=== PATIENT | female | born 1945 | race Caucasian/White ===

== ENCOUNTER → 2020-06-29 | Outpatient (CLI) | payer MEDICARE ==
[~2020-06-29] MED LIST: ALBU3IS; ASPI325; ATOR10; BACL10; BUDE10.22; COLE625 PO; Celexa10 MG; FLUT220OIA; GABA600; LOPE2C; LORA10; Omeprazole20 M1 PO; PROP60
== END ==
LOC: PLD 07:30 → LAB SHORT 07:30
DX: D48.5 Neoplasm of uncertain behavior of skin (principal); L57.0 Actinic keratosis
CPT/HCPCS: 88342

== ENCOUNTER 2021-08-17 12:53 | Emergency (ER) | payer MEDICARE ==
[~2021-08-17] VITALS: Ht 162.6 cm; Wt 59.0 kg
== END 2021-08-17 15:54 | disposition home or self-care (01) ==
LOC: ER 12:53
DX: S00.03XA Contusion of scalp, initial encounter (principal); S59.902A Unspecified injury of left elbow, initial encounter; W19.XXXA Unspecified fall, initial encounter
CPT/HCPCS: 70450; 99283-25

== ENCOUNTER 2022-09-20 10:25 | Inpatient (IN) | payer MEDICARE ==
[~2022-09-20] VITALS: Ht 152.4 cm; Wt 38.1 kg
[~2022-09-20 10:25] MED LIST changes: -ATOR10; +ATOR40TA PO; +OMEP20ER PO; -Omeprazole20 M1 PO
[2022-09-20 11:29] LABS: Hematocrit 34.6 % (33.0-51.0); Hemoglobin 11.3 g/dL (11.5-16.0); Mean Corpuscular HGB 30.2 pg (26.0-34.0); Mean Corpuscular HGB Conc 32.7 g/dL (31.5-36.5); Mean Corpuscular Volume 93 fL (80-100); Mean Platelet Volume 9.8 fL (9.1-12.4); Platelet Count 535 K/mm3 (150-400); RDW Coefficient Variation 14.9 % (11.7-14.2); RDW Standard Deviation 50.4 fL (35.1-46.3); Red Blood Cell Count 3.74 M/mm3 (3.80-5.20); White Blood Cell Count 34.96 K/mm3 (4.00-11.30)
[2022-09-20 11:47] LABS: Albumin/Globulin Ratio 0.5 (0.8-1.8); Bilirubin, Total 0.6 mg/dL (0.1-1.0); Calcium, Blood 8.2 mg/dL (8.5-10.1); Creatinine, Blood 0.72 mg/dL (0.40-1.00); Globulin, Blood 3.8 g/dL (2.2-4.0); Potassium, Blood 4.8 mmol/L (3.5-5.5); Total Protein, Blood 5.8 g/dL (6.4-8.2)
[2022-09-20 11:58] LABS: Source, Urine Clean Catch
[2022-09-20 12:07] LABS: Appearance, Urine Clear (Clear); Blood, Urine Neg (Neg); Color, Urine Amber (P-Yellow); Glucose Qualitative, Urine Neg (Neg); Ketones, Urine 1+ (Neg); Leukocyte Esterase, Urine 1+ (Neg); Nitrite, Urine Neg (Neg); Protein, Urine 2+ (Neg); Urobilinogen, Urine 1+ (Normal)
[2022-09-20 12:22] LABS: BAND PERCENT MAN 22 % (0-8); BASOPHILS PERCENT MAN 0 % (0-2); EOSINOPHILS PERCENT MAN 0 % (0-6); LYMPHOCYTES ABSOLUTE MAN 1.74 K/mm3 (0.84-5.20); LYMPHOCYTES PERCENT MAN 5 % (21-46); METAMYELOCYTE ABSOLUTE MAN 0.34 K/mm3 (0.00-0.00); METAMYELOCYTE PERCENT MAN 1 % (0-0); MONOCYTES ABSOLUTE MAN 2.79 K/mm3 (0.16-1.47); MONOCYTES PERCENT MAN 8 % (4-13); NEUTROPHILS ABSOLUTE MAN 30.06 K/mm3 (1.96-9.15); SEG NEUTROPHILS PERCENT MAN 64 % (41-73); TOTAL CELLS COUNTED 100
[2022-09-20 12:30] LABS: Influenza A, PCR NEGATIVE (NEGATIVE); Influenza B, PCR NEGATIVE (NEGATIVE); Resp Syncytial Virus, PCR NEGATIVE (NEGATIVE); SARS-Cov-2 (COVID-19) PCR, MMC NEGATIVE (NEGATIVE)
[2022-09-20 12:36] LABS: Bilirubin, Urine 1+ (Neg)
[2022-09-20 12:38] LABS: Red Blood Cells, Urine 0-2 /hpf (0-2)
[2022-09-20 12:40] LABS: Bacteria Few /hpf; Squamous Epithelial Cells Rare /hpf (Few)
[2022-09-20 19:20] LABS: Campylobacter Sp Not Detected (NOT DETECT); Plesiomonas Shigelloides Not Detected (NOT DETECT); Salmonella Sp Not Detected (NOT DETECT); Vibrio Cholerae Not Detected (NOT DETECT); Vibrio Sp Not Detected (NOT DETECT); Yersinia Enterocolitica Not Detected (NOT DETECT)
[2022-09-20 19:21] LABS: Adenovirus F 40/41 Not Detected (NOT DETECT); Astrovirus Not Detected (NOT DETECT); Cryptosporidium Not Detected (NOT DETECT); Cyclospora Cayetanensis Not Detected (NOT DETECT); E. Coli O157 Not Detected (NOT DETECT); Entamoeba Histolytica Not Detected (NOT DETECT); Enteroaggregative E. coli-EAEC Not Detected (NOT DETECT); Enteropathogenic E. coli-EPEC Detected (NOT DETECT); Enterotoxigenic E. coli-ETEC Not Detected (NOT DETECT); Giardia Lamblia Not Detected (NOT DETECT); Norovirus GI/GII Detected (NOT DETECT); Rotavirus A Not Detected (NOT DETECT); Sapovirus Not Detected (NOT DETECT); Shiga Toxin-prod E. coli-STEC Not Detected (NOT DETECT); Shigella/Enteroin E. coli-EIEC Not Detected (NOT DETECT)
[2022-09-20] MEDS ORDERED: DULO60 PO (20:55)
[2022-09-20] MEDS ORDERED: Namenda5 MG PO (20:55)
[2022-09-20] MEDS ORDERED: METPRE4DP PO (20:56)
--- NOTE | 2022-09-21 03:15 | NUR ---
SHIFT SUMMARY; PATIENT ARRIVED TO MED FLOOR SHORTLY AFTER SHIFT CHANGE. SHE IS IN CONTACT PRECAUTIONS FOR POS NORO VIRUS AND FOR POS C-DIFF. HER STOOLS ARE VERY LOOSE AND SHE HAS MINIMAL CONTROL. PATIENT IS CHANGED OFTEN DURING NOC SHIFT AND NOTED TO HAVE INCREASED REDNESS ON HER RECTAL AREA. CREME IS APPLIED FOR PAITENT COMFORT. SHE HAS LR AT 100ML/HR INFUSING AND SHE RESTED COMFORTTABLY THROUGHOUT THE NIGHT. ROUSEING EASILY TO VERBAL STIMULIU. HER VITAL SIGNS ARE STABLE WITH EXCEPTION OF A RAPID PULSE IN THE 100 RANGE. PER REPORT PATIENT HAS PANCREATIC CANCER AND IT HAS METASTACIZED TO THE BRAIN.
[2022-09-21] MEDS ORDERED: POTA10T PO (04:56)
[2022-09-21] MEDS ORDERED: TRAM50 PO (04:57)
[2022-09-21] MEDS ORDERED: OXYC5 PO (05:00)
[2022-09-21] MEDS ORDERED: CREON DR 6,0001 EACH PO ×2 (05:01→05:02)
[2022-09-21] MEDS ORDERED: AMLODIPINE BESYL5 MG PO (05:02)
[2022-09-21] MEDS ORDERED: LEVFLO500 PO (05:03)
[2022-09-21 05:34] LABS: BASOPHILS ABSOLUTE AUTO 0.12 K/mm3 (0.00-0.23); BASOPHILS PERCENT AUTO 1 % (0-2); EOSINOPHILS ABSOLUTE AUTO 0.11 K/mm3 (0.00-0.68); EOSINOPHILS PERCENT AUTO 1 % (0-6); Hemoglobin 10.7 g/dL (11.5-16.0); IMMATURE GRAN ABSOLUTE AUTO 0.23 K/mm3 (0.00-0.10); IMMATURE GRAN PERCENT AUTO 1 % (0-1); LYMPHOCYTES PERCENT AUTO 14 % (21-46); MONOCYTES ABSOLUTE AUTO 1.76 K/mm3 (0.16-1.47); MONOCYTES PERCENT AUTO 8 % (4-13); Mean Corpuscular HGB 30.1 pg (26.0-34.0); Mean Corpuscular HGB Conc 32.4 g/dL (31.5-36.5); Mean Corpuscular Volume 93 fL (80-100); Mean Platelet Volume 9.8 fL (9.1-12.4); NEUTROPHILS ABSOLUTE AUTO 16.14 K/mm3 (1.96-9.15); NEUTROPHILS PERCENT AUTO 76 % (41-73); Platelet Count 532 K/mm3 (150-400); Red Blood Cell Count 3.56 M/mm3 (3.80-5.20); White Blood Cell Count 21.36 K/mm3 (4.00-11.30)
[2022-09-21 06:27] LABS: Bun/Creatinine Ratio 31.1 (12.0-20.0); Calcium, Blood 7.7 mg/dL (8.5-10.1); Creatinine, Blood 0.58 mg/dL (0.40-1.00)
--- NOTE | 2022-09-21 16:42 | NUR ---
SHIFT SUMMARY PT A&OX4 AND COOPERATIVE OF CARE. PT HAD ONE EPISODE OF INCONTINENCE IN THE AM BUT HAS BEEN ABLE TO USE BEDSIDE CAMMODE FOR REST OF DAY. PT WAS UP TO CHAIR DURING LUNCH AND TOLERATED WELL. AT BEDSIDE FOR SHORT TIME DURING AFTERNOON. PT C/O HEADACHE DURING AFTERNOON, MEDICATED PER EMAR. PT APPEARS TO BE RESTING WITH NO SIGNS OF DISCOMFORT. BED IN LOWEST POSITION AND CALL LIGHT IN REACH.
--- NOTE | 2022-09-22 03:03 | NUR ---
SHIFT SUMMARY; PATIENT HAS PLEASANT AFFECT AND IS COOPERATIVE WITH CARE. PATIENT STILL COMPLAINS OF DIARRHEA AND HAS DIFFICULT TIME CONTROLLING HER BOWELS. SHE IS NOTED TO SOIL MULTIPLE ATTENDS. SHE IS AO X 4 DURING NOC SHIFT AND HER VITAL SIGNS ARE STABLE. SHE USES CALL LIGHT APPROPRIATELY AND IS ABLE TO MAKE HER NEEDS KNOWN. SHE REMAINS ON BEDREST AND IS MEDICATED X 1 FOR ABDOMINAL PAIN WITH GOOD RESULTS. WILL REMAIN AVAILABLE FOR THIS PATIENT FOR ANY WANTS OR NEEDS THAT COME UP FOR THIS PATIENT UNTIL REPORT AND HAND OFF TO DAY SHIFT RN.
[2022-09-22 06:02] LABS: BASOPHILS ABSOLUTE AUTO 0.04 K/mm3 (0.00-0.23); BASOPHILS PERCENT AUTO 1 % (0-2); EOSINOPHILS ABSOLUTE AUTO 0.18 K/mm3 (0.00-0.68); EOSINOPHILS PERCENT AUTO 2 % (0-6); Hematocrit 32.2 % (33.0-51.0); Hemoglobin 10.5 g/dL (11.5-16.0); IMMATURE GRAN PERCENT AUTO 1 % (0-1); LYMPHOCYTES ABSOLUTE AUTO 2.82 K/mm3 (0.84-5.20); LYMPHOCYTES PERCENT AUTO 33 % (21-46); MONOCYTES ABSOLUTE AUTO 0.81 K/mm3 (0.16-1.47); MONOCYTES PERCENT AUTO 9 % (4-13); Mean Corpuscular HGB 30.3 pg (26.0-34.0); Mean Corpuscular HGB Conc 32.6 g/dL (31.5-36.5); Mean Corpuscular Volume 93 fL (80-100); Mean Platelet Volume 9.4 fL (9.1-12.4); NEUTROPHILS ABSOLUTE AUTO 4.69 K/mm3 (1.96-9.15); NEUTROPHILS PERCENT AUTO 54 % (41-73); Platelet Count 501 K/mm3 (150-400); RDW Coefficient Variation 14.9 % (11.7-14.2); RDW Standard Deviation 50.2 fL (35.1-46.3); Red Blood Cell Count 3.47 M/mm3 (3.80-5.20); White Blood Cell Count 8.64 K/mm3 (4.00-11.30)
[2022-09-22 06:34] LABS: Calcium, Blood 7.2 mg/dL (8.5-10.1); Creatinine, Blood 0.53 mg/dL (0.40-1.00); Magnesium, Blood 2.5 mg/dL (1.6-2.4); Potassium, Blood 3.8 mmol/L (3.5-5.5)
[2022-09-22] MEDS ORDERED: VISBIOME 112.51 EACH PO (13:48)
[2022-09-22] MEDS ORDERED: VANCOCIN HCL125 MG PO (13:48)
--- NOTE | 2022-09-22 16:19 | NUR ---
PT DISCHARGED HOME WITH . DISCHARGE INSTRUCTIONS AND EDUCATION MATERIAL EXPALINED TO PT. PT AND SPOUSE VERBALIZED NO NEW QUESTIONS OR CONCERNS. IV DC'D. PATRIZIA AND ALBA IN PLACE. BELONGINGS SENT HOME WITH PT. PT TAKEN BY WHEELCHAIR TO WAITING VEHICLE.
== END 2022-09-22 16:10 | disposition home health service (06) | DRG 872 ==
LOC: ER 10:25 → MEDS 18:55
PROVIDERS: Physician Assistant; Student in an Organized Health Care Education/Training Program; ADMIT Family Medicine
DX: A41.9 Sepsis, unspecified organism (principal); A04.72 Enterocolitis due to Clostridium difficile, not specified as recurrent; A04.4 Other intestinal Escherichia coli infections; A08.11 Acute gastroenteropathy due to Norwalk agent; C25.9 Malignant neoplasm of pancreas, unspecified; D84.9 Immunodeficiency, unspecified; E87.1 Hypo-osmolality and hyponatremia; E87.20 Acidosis, unspecified; R65.20 Severe sepsis without septic shock; E83.42 Hypomagnesemia; J44.9 Chronic obstructive pulmonary disease, unspecified; K21.9 Gastro-esophageal reflux disease without esophagitis; E86.0 Dehydration; D63.0 Anemia in neoplastic disease; D75.839 Thrombocytosis, unspecified; Z20.822 Contact with and (suspected) exposure to COVID-19; Z96.612 Presence of left artificial shoulder joint; Z88.2 Allergy status to sulfonamides; Z79.899 Other long term (current) drug therapy; Z79.02 Long term (current) use of antithrombotics/antiplatelets; Z92.21 Personal history of antineoplastic chemotherapy; Z79.51 Long term (current) use of inhaled steroids; Z79.52 Long term (current) use of systemic steroids; Z90.49 Acquired absence of other specified parts of digestive tract; Z98.890 Other specified postprocedural states; Z90.710 Acquired absence of both cervix and uterus; Z87.891 Personal history of nicotine dependence
CPT/HCPCS: 0241U; 36415; 71045; 74177; 80048; 80053; 81001; 83605; 83735; 85025; 87040; 87086; 87324; 87507; 93005; 93010; 96361; 96365-59; 96375; 97162; 97530; 99285-25; A9270; J0692; J0696; J1650; J3475; J7030; J7120; P9612; Q9967

== ENCOUNTER 2022-12-02 22:15 | Emergency (ER) | payer MEDICARE ==
[~2022-12-02] VITALS: Ht 162.6 cm; Wt 34.0 kg
[~2022-12-02 22:15] MED LIST changes: +AMLODIPINE BESYL5 MG PO; +CREON DR 6,0001 EACH PO; +DULO60 PO; +LEVFLO500 PO; +METPRE4DP PO; +Namenda5 MG PO; +OXYC5 PO; +POTA10T PO; +TRAM50 PO; +VANCOCIN HCL125 MG PO; +VISBIOME 112.51 EACH PO
[2022-12-03 01:12] LABS: BASOPHILS ABSOLUTE AUTO 0.02 K/mm3 (0.00-0.23); BASOPHILS PERCENT AUTO 0 % (0-2); EOSINOPHILS ABSOLUTE AUTO 0.04 K/mm3 (0.00-0.68); EOSINOPHILS PERCENT AUTO 0 % (0-6); Hemoglobin 12.7 g/dL (11.5-16.0); IMMATURE GRAN ABSOLUTE AUTO 0.03 K/mm3 (0.00-0.10); IMMATURE GRAN PERCENT AUTO 0 % (0-1); LYMPHOCYTES ABSOLUTE AUTO 1.89 K/mm3 (0.84-5.20); LYMPHOCYTES PERCENT AUTO 16 % (21-46); MONOCYTES ABSOLUTE AUTO 0.53 K/mm3 (0.16-1.47); MONOCYTES PERCENT AUTO 5 % (4-13); Mean Corpuscular HGB 29.3 pg (26.0-34.0); Mean Corpuscular HGB Conc 33.4 g/dL (31.5-36.5); Mean Corpuscular Volume 88 fL (80-100); Mean Platelet Volume 10.4 fL (9.1-12.4); NEUTROPHILS ABSOLUTE AUTO 9.09 K/mm3 (1.96-9.15); NEUTROPHILS PERCENT AUTO 78 % (41-73); Platelet Count 439 K/mm3 (150-400); RDW Coefficient Variation 16.3 % (11.7-14.2); RDW Standard Deviation 52.5 fL (35.1-46.3); Red Blood Cell Count 4.34 M/mm3 (3.80-5.20)
[2022-12-03 01:41] LABS: Magnesium, Blood 1.8 mg/dL (1.6-2.4)
[2022-12-03 01:46] LABS: Albumin/Globulin Ratio 0.9 (0.8-1.8); Bilirubin, Direct 0.1 mg/dL (0.0-0.3); Bilirubin, Indirect 0.3 mg/dL (0.1-0.7); Bilirubin, Total 0.4 mg/dL (0.1-1.0); Bun/Creatinine Ratio 27.6 (12.0-20.0); Creatinine, Blood 0.51 mg/dL (0.40-1.00); Globulin, Blood 3.5 g/dL (2.2-4.0); Total Protein, Blood 6.5 g/dL (6.4-8.2)
[2022-12-03 01:53] LABS: Potassium, Blood 2.1 mmol/L (3.5-5.5)
[2022-12-03 02:21] LABS: Source, Urine Straight Cath
[2022-12-03 02:35] LABS: Bilirubin, Urine Neg (Neg); Blood, Urine 1+ (Neg); Glucose Qualitative, Urine Neg (Neg); Ketones, Urine 1+ (Neg); Leukocyte Esterase, Urine 1+ (Neg); Nitrite, Urine Neg (Neg); Protein, Urine 2+ (Neg); Specific Gravity, Urine 1.025 (1.003-1.022); Urobilinogen, Urine NORM (Normal)
[2022-12-03 03:06] LABS: Appearance, Urine Hazy (Clear); Color, Urine Yellow (P-Yellow)
[2022-12-03 03:09] LABS: Bacteria Many /hpf; Granular Casts 0-2 /lpf (0); Hyaline Casts 0-2 /lpf (0-2); Red Blood Cells, Urine 0-2 /hpf (0-2); Squamous Epithelial Cells Few /hpf (Few)
[2022-12-03 11:06] LABS: Influenza A, PCR NEGATIVE (NEGATIVE); Influenza B, PCR NEGATIVE (NEGATIVE); Resp Syncytial Virus, PCR NEGATIVE (NEGATIVE); SARS-Cov-2 (COVID-19) PCR, MMC NEGATIVE (NEGATIVE)
--- NOTE | 2022-12-03 11:46 | NUR ---
Met with pt this am after speaking with pt's Massimo and ED social worker clinical/nurse wound care Indira. Pt was referred to [facility] by Dr. Taylor, Oncologist. Per Valorie,RN at [facility], Dr. Ochoa's office stated pt is "going quickly". Last night, pt's sent her to the ED via EMT after she fell several times. Per , pt weighs approx 58lbs and has continued to lose weight rapidly since diagnosis and treatment. is calling pt's daughter in [place] now to come to help with pt's care. She is being sent home now, and will be admitted to hospice services today. Pt is alert, pleasantly confused. She indicated she has not begun doing any sort of treatment for her pancreatic cancer yet, and stated the spots on her brain "simply dissapeared". She became upset at the use of the word "hospice" and reports she has no plan of going on hospice anytime soon, as "there is no need, I'm not sick". According to her , this is her usual attitude and thoughts, as she has extremely poor short term memory. I discussed this with admitting hospice nurse, as well as ED customs manager. Pt's is aware pt is returning home now; he is calling pt's daughter for help in caring for pt.
== END 2022-12-03 12:03 | disposition home or self-care (01) ==
LOC: ER 22:15
PROVIDERS: Emergency Medicine; Student in an Organized Health Care Education/Training Program
DX: E87.6 Hypokalemia (principal); C25.9 Malignant neoplasm of pancreas, unspecified; R64 Cachexia; R62.7 Adult failure to thrive; Z68.1 Body mass index [BMI] 19.9 or less, adult; Z88.2 Allergy status to sulfonamides; Z79.899 Other long term (current) drug therapy; K21.9 Gastro-esophageal reflux disease without esophagitis; Z87.891 Personal history of nicotine dependence
CPT/HCPCS: 0241U; 36415; 70450; 80048; 80076; 81001; 83690; 83735; 85025; 96361; 96365; 96366; 96368; 96375; 99285-25; A9270; J2765; J3475; J3480; J7030; J7050